=== PATIENT | female | born 1990 | race Caucasian/White ===

== ENCOUNTER 2023-10-14 10:39 | Outpatient (CLI) | payer OTHER ==
[2023-10-14] MEDS ORDERED: Iopamidol 300 61% 100 ML VIAL FS ONE (14:23)
== END 2023-10-14 10:40 | disposition home or self-care (01) ==
LOC: CSHCT 10:39
PROVIDERS: ATTEND Specialist
DX: R22.0 Localized swelling, mass and lump, head (principal); Z98.818 Other dental procedure status; J32.0 Chronic maxillary sinusitis
CPT/HCPCS: 70491; Q9967